=== PATIENT | female | born 1960 | race Caucasian/White ===

== ENCOUNTER 2018-12-28 14:16 | Emergency (ER) | payer OTHER ==
--- NOTE | 2018-12-28 14:45 | ED ---
Neurological HPI - HPI Summary HPI Summary: This patient is a 58 year old female presenting to [facility] with a chief complaint of intermittent bilateral arm numbness/tingling. She reports headache and nausea today around 0900 this morning with a history of migraine, took meds and these symptoms resolved. She has had the right arm numbness and tingling previously, but just started experiencing the left arm numbness/tingling. She reports intermittent pain in her left arm centralized around the medial wrist. She states she took 800 mg Ibuprofen additionally. She has a Hx of Fibromyalgia and Carpal Tunnel syndrome. - History of Current Complaint Chief Complaint: EDExtremityUpper Stated Complaint: RIGHT ARM NUMBNESS, HEADACE, Hx Obtained From: Patient Pain Intensity: 0 Pain Scale Used: 0-10 Numeric Character: Numbness/Tingling, Typical Migraine - Allergy/Home Medications Allergies/Adverse Reactions: Allergies Allergy/AdvReac Type Severity Reaction Status Date / Time morphine Allergy Anaphylatic Verified 12/28/18 14:23 Shock adhesives AdvReac Intermediate See Comment Uncoded 12/25/15 01:24 Home Medications: Home Medications Aspirin EC TAB* [Ecotrin EC Low Dose 81 MG*] 81 mg PO DAILY 12/28/18 [History Confirmed 12/28/18] Atorvastatin* [Lipitor*] 40 mg PO BEDTIME 12/28/18 [History Confirmed 12/28/18] Baclofen TAB* [Lioresal TAB*] 20 mg PO QID PRN 12/28/18 [History Confirmed ] Bumetanide TAB* [Bumex 1 MG TAB*] 1 mg PO DAILY 12/28/18 [History Confirmed ] Cholecalciferol TAB* [Vitamin D TAB*] 1,000 unit PO DAILY 12/28/18 [History Confirmed 12/28/18] Cyanocobalamin TAB* [Vitamin B12 TAB*] 500 mcg PO DAILY 12/28/18 [History Confirmed 12/28/18] Desvenlafaxine(NF) [Pristiq(NF)] 100 mg PO DAILY 12/28/18 [History Confirmed ] Fluticasone NASAL SPRAY 50MCG* [Flonase NASAL SPRAY 50MCG*] 2 spray BOTH NARES DAILY 12/28/18 [History Confirmed 12/28/18] Gabapentin CAP(*) [Neurontin 300 CAP(*)] 900 mg PO TID PRN 12/28/18 [History Confirmed 12/28/18] Ibuprofen TAB* [Motrin TAB* 400 MG] 400 mg PO TID PRN 12/28/18 [History Confirmed 12/28/18] Ketoconazole 2 % CREAM (NF) [Nizoral 2% CREAM (NF)] 1 applic TOPICAL BID PRN [History Confirmed 12/28/18] Meclizine TAB* [Antivert 12.5 TAB*] 25 mg PO QID PRN 12/28/18 [History Confirmed 12/28/18] Metoclopramide TAB* [Reglan TAB*] 10 mg PO Q6H PRN 12/28/18 [History Confirmed 12/28/18] NIFEdipine ER TAB* [Procardia Xl TAB*] 30 mg PO DAILY 12/28/18 [History Confirmed 12/28/18] Omeprazole (Nf) [Prilosec (NF)] 40 mg PO DAILY 12/28/18 [History Confirmed 12/28] SUMAtriptan TAB* [Imitrex TAB*] 100 mg PO Q2HR PRN MDD 200mg 12/28/18 [History Confirmed 12/28/18] Triamterene/HCTZ 37.5-25 MG* [Dyazide CAP*] 1 cap PO DAILY 12/28/18 [History Confirmed 12/28/18] Varenicline (NF) [Chantix 1 MG TAB (NF)] 1 mg PO BID 12/28/18 [History Confirmed 12/28/18] Zolpidem TAB* [Ambien TAB*] 10 mg PO BEDTIME PRN 12/28/18 [History Confirmed ] busPIRone TAB* [Buspar *] 30 mg PO BID PRN 12/28/18 [History Confirmed 12/28/18] oxyCODONE/Acetamin 10/325(NF) [Percocet 10/325 (NF)] 1 tab PO Q6HR PRN 12/28/18 [History Confirmed 12/28/18] PMH/Surg Hx/FS Hx/Imm Hx Cardiovascular History: Denies: Hx Aneurysm Musculoskeletal History: Reports: Hx Fibromyalgia - Cancer History Hx Chemotherapy: No Hx Radiation Therapy: No - Surgical History Surgery Procedure, Year, and Place: STENT PLACEMENT Infectious Disease History: No Infectious Disease History: Denies: Traveled Outside the [place] in Last 30 Days - Family History Known Family History: Positive: Other - breast cancer - Social History Alcohol Use: None Substance Use Type: Reports: None Smoking Status (MU): Never Smoked Tobacco Review of Systems Positive: Nausea Positive: Headache, Paresthesia, Numbness All Other Systems Reviewed And Are Negative: Yes Physical Exam - Summary Physical Exam Summary: Appearance: The patient is well-nourished in no acute distress and in no acute pain. Skin: The skin is warm and dry, and skin color reflects adequate perfusion. HEENT: The head is normocephalic and atraumatic. The pupils are equal and reactive. The conjunctivae are clear and without drainage. Nares are patent and without drainage. Mouth reveals moist mucous membranes, and the throat is without erythema and exudate. The external ears are intact. The ear canals are patent and without drainage. The tympanic membranes are intact. Neck: The neck is supple with full range of motion and non-tender. There are no carotid bruits. There is no neck vein distension. Respiratory: Chest is non-tender. Lungs are clear to auscultation and breath sounds are symmetrical and equal. Cardiovascular: Heart is regular rate and rhythm. There is no murmur or rub auscultated. There is no peripheral edema and pulses are symmetrical and equal. Abdomen: The abdomen is soft and non-tender. There are normal bowel sounds heard in all four quadrants and there is no organomegaly palpated. Musculoskeletal: There is no back tenderness noted. Extremities are non-tender with full range of motion. There is good capillary refill. There is no peripheral edema or calf tenderness elicited. Posterior upper left arm and mid forearm mildly tender upon palpitation. Neurovascularly intact. Neurological: Patient is alert and oriented to person, place and time. The patient has symmetrical motor strength in all four extremities. Cranial nerves are grossly intact. Deep tendon reflexes are symmetrical and equal in all four extremities. Psychiatric: The patient has an appropriate affect and does not exhibit any anxiety or depression. Triage Information Reviewed: Yes Vital Signs On Initial Exam: Initial Vitals Temp Pulse Resp BP Pulse Ox 98.2 F 120 14 130/96 97 12/28/18 14:18 12/28/18 14:18 12/28/18 14:18 10/21/19 14:18 12/28/18 14:18 Vital Signs Reviewed: Yes Procedures - Sedation Patient Received Moderate/Deep Sedation with Procedure: No Diagnostics - Vital Signs Vital Signs Temp Pulse Resp BP Pulse Ox 12/28/18 14:18 98.2 F 120 14 130/96 97 - Laboratory Result Diagrams: 12/28/18 15:26 12/28/18 15:26 Lab Statement: Any lab studies that have been ordered have been reviewed, and results considered in the medical decision making process. - CT Cervical Spine CT Interpretation Completed By: Radiologist Summary of CT Findings: 1. Osteopenia. 2. Degenerative disc disease and osteoarthritis. 3. There is neural foraminal narrowing as described above. 4. There is mild narrowing ofthe central canal at C5-C6. ED Provider has reviewed this report. - EKG 1516 Cardiac Rate: NL EKG Rhythm: Sinus Rhythm - 68 BPM Summary of EKG Findings: This is a normal EKG. ED Provider has reviewed and interpreted this EKG. Course/Dx - Course Course Of Treatment: Ms. Patterson presented with what sounded like a left cervical radiculopathy. She had a normal EKG and her labs were unremarkable. She did have degenerative disc disease in her neck on CT scan. Her initial troponin returned at 0.67 and we were informed that this had been rechecked. I spoke with Dr. Durant, ordered heparin for her and contacted Dr. Wolfe for hospitalist admission. Immediately after the heparin was initiated the lab called and stated that the troponin was 0.01. She was redrawn for a troponin at that point in the heparin was stopped. The second troponin was reported to 0.16. We waited for the recheck which came back at 0.01. I asked them to run again and it again returned at 0.01. I'm informed by the photo lab specialist that there are no false negatives only false positives with these troponins. I'm going to give her a steroid burst for her neck and have her follow-up with her PCP this week. - Diagnoses Provider Diagnoses: Cervical radiculopathy - Physician Notifications Discussed Care Of Patient With: Ab Durant - Cardiology Time Discussed With Above Provider: 16:36 - Give Heparin and admit the patient. Instructed by Provider To: Admit As Inpatient Discharge ED - Sign-Out/Discharge Documenting (check all that apply): Patient Departure - Admission, accepted by Dr. Pantoja. - Discharge Plan Condition: Stable Disposition: HOME Prescriptions: methylPREDNISolone [Medrol Dosepak 4 MG*] 4 mg PO .SEE DONALDO INSTRUCTION #1 tab Patient Education Materials: Cervical Radiculopathy (ED) Referrals: Ab Durant MD [Medical Doctor] - Additional Instructions: Follow up with Cardiology. Return to ED with any new or worsening symptoms. - Billing Disposition and Condition Condition: STABLE Disposition: Home - Attestation Statements Document Initiated by Alejandro: Yes Documenting Scribe: Noah Naqvi Provider For Whom Alejandro is Documenting (Include Credential): Leonard Gregory MD Scribe Attestation: Noah Flower, scribed for Leonard Gregory MD on 12/28/18 at 1955. Scribe Documentation Reviewed: Yes Provider Attestation: The documentation as recorded by the Noah brock accurately reflects the service I personally performed and the decisions made by me, Leonard Gregory MD Status of Scribe Document: Viewed
[2018-12-28 15:32] LABS: ABS Basophils 0.1 10^3/ul (0-0.2); ABS Monocytes 0.5 10^3/ul (0-0.8); ABS Neutrophils 4.7 10^3/ul (1.5-7.7); Eosinophil % 0.3 %; Hematocrit 43 % (35-47); Hemoglobin 14.1 g/dL (12.0-16.0); Lymphocyte % 27.8 %; Mean Corpuscular HGB Conc 33 g/dL (31-36); Mean Corpuscular Hemoglobin 27 pg (27-31); Mean Corpuscular Volume 82 fL (80-97); Mean Platelet Volume 7.1 fL (7.4-10.4); Nucleated Red Blood Cells % 0.1; Platelet Count 360 10^3/uL (150-450); Red Blood Count 5.21 10^6 /uL (3.70-4.87); Red Cell Distribution Width 16 % (10-15); White Blood Count 7.3 10^3/uL (3.5-10.8)
[2018-12-28 15:53] LABS: ALT 15 U/L (7-52); AST 14 U/L (13-39); Albumin 4.1 g/dL (3.2-5.2); Albumin/Globulin Ratio 1.4 (1-3); Alkaline Phosphatase 98 U/L (34-104); Anion Gap 6 mmol/L (2-11); BUN/Creatinine Ratio 17.4 (8-20); Blood Urea Nitrogen 16 mg/dL (6-24); CO2 Carbon Dioxide 30 mmol/L (22-32); Calcium 9.6 mg/dL (8.6-10.3); Chloride 102 mmol/L (101-111); EGFR African American 75.9 (>60); EGFR Non-African American 62.7 (>60); Globulin 2.9 g/dL (2-4); Glucose 107 mg/dL (70-100); Potassium 3.6 mmol/L (3.5-5.0); Sodium 138 mmol/L (135-145)
[2018-12-28] MEDS ORDERED: Heparin DRIP 25,000 UNITS(*) 25,000 UNITS/500 ML BAG IV SCH (16:30)
[2018-12-28] MEDS ORDERED: Metoprolol Tartrate TAB* 25 MG PO ONE (16:46)
[2018-12-28] MEDS ORDERED: Metoprolol Tartrate IV* 1 MG/ML 5 ML VIAL IV ONE (16:46)
[2018-12-28] MEDS ORDERED: Heparin VIAL(*) 5000 UNITS/ML VIAL (FIVE THOUSAND) IV SCH (17:00)
[2018-12-28 17:02] LABS: Troponin I 0.01 ng/mL (<0.04)
[2018-12-28 18:47] LABS: Troponin I 0.01 ng/mL (<0.04)
[2018-12-28 19:06] VITALS: BP 118/79
[2018-12-28] MEDS ORDERED: Metoprolol Tartrate TAB* 25 MG PO SCH (21:00)
== END 2018-12-28 19:06 | disposition home or self-care (01) ==
LOC: ED 14:16
DX: M54.12 Radiculopathy, cervical region (principal); M79.7 Fibromyalgia; Z79.82 Long term (current) use of aspirin; Z79.899 Other long term (current) drug therapy; Z88.5 Allergy status to narcotic agent
CPT/HCPCS: 36415; 72125; 80053; 83605; 84484; 85025; 85730; 93005; 96365; 96375; 99283; J1644; J3490